=== PATIENT | female | born 1950 ===

== ENCOUNTER 2017-08-20 07:57 | Outpatient (CLI) | payer OTHER ==
[~2017-08-20] VITALS: Ht 121.9 cm; Wt 78.5 kg
[~2017-08-20 07:57] MED LIST: AMARYL 4MG; ASA325 M1 PO; COZAAR25 MG; LANTUS SOLOSTAR3 ML SQ; METFORMIN HCL1000 MG PO; PLAVIX75 MG PO; PROTONIX40 MG PO; [UNRECOGNIZED DRUG - OTHER]
== END 2017-08-20 08:15 | disposition home or self-care (01) ==
LOC: OFIC 805 07:57
DX: H90.3 Sensorineural hearing loss, bilateral (principal); H60.8X3 Other otitis externa, bilateral; H61.23 Impacted cerumen, bilateral; R42 Dizziness and giddiness; H93.13 Tinnitus, bilateral; J31.0 Chronic rhinitis

== ENCOUNTER 2018-06-30 10:44 | Outpatient (CLI) | payer OTHER | END 2018-06-30 10:47 | disposition home or self-care (01) | LOC: SONOGRAMA 10:44 | DX: E04.2 Nontoxic multinodular goiter (principal) ==

== ENCOUNTER 2021-05-05 09:11 | Outpatient (CLI) | payer OTHER | END 2021-05-05 09:29 | disposition home or self-care (01) | LOC: SONOGRAMA 09:11 | PROVIDERS: ATTEND Pathology Anatomic Pathology & Clinical Pathology | DX: D34 Benign neoplasm of thyroid gland (principal); E04.8 Other specified nontoxic goiter ==